=== PATIENT | female | born 1990 | race Hispanic/Latino ===

== ENCOUNTER 2017-07-31 19:58 | Emergency (ER) | payer BC ==
[2017-07-31] MEDS ORDERED: SODIUM CHLORIDE 0.9% 1000ML 1,000 ML IV ONE (20:14)
[2017-07-31 20:33] LABS: BASOPHILS % (AUTO) 0.6 % (0.0-5.0); EOSINOPHILS % (AUTO) 2.2 % (0.0-8.0); HEMATOCRIT 36.9 % (36-48); LYMPHOCYTES % (AUTO) 39.6 % (21.0-51.0); MEAN CORPUSCULAR HEMOGLOBIN 32.5 pg (27.0-33.0); MEAN CORPUSCULAR HGB CONC 35.3 g/dL (32.0-36.0); MEAN CORPUSCULAR VOLUME 92.2 fL (79-99); MONOCYTES % (AUTO) 7.9 % (3.0-13.0); NEUTROPHILS % (AUTO) 49.7 % (40.0-77.0); PLATELET COUNT (AUTO) 364 K/uL (130-400); RED CELL DISTRIBUTION WIDTH 13.4 % (11.0-15.5); WHITE BLOOD COUNT (AUTO) 10.4 K/uL (4.8-10.8)
[2017-07-31 20:38] LABS: APPEARANCE,URINE Clear (CLEAR); BILIRUBIN,URINE Negative (NEGATIVE); COLOR,URINE Yellow (YELLOW); GLUCOSE, URINE (UA) Negative (NEGATIVE); KETONES,URINE Negative (NEGATIVE); LEUKOCYTE ESTERASE ,URINE Trace (NEGATIVE); NITRATE,URINE Negative (NEGATIVE); OCCULT BLOOD,URINE Negative (NEGATIVE); PH,URINE 6.5 (5.0-8.0); PROTEIN,URINE Negative (NEGATIVE)
[2017-07-31 20:46] LABS: BACTERIA,URINE Rare /HPF (None Seen); RBC,URINE None Seen /HPF (0-1); WBC,URINE 0-1 /HPF (0-1)
[2017-07-31 20:47] LABS: CREATININE 0.7 mg/dL (0.5-1.5); POTASSIUM 3.9 mmol/L (3.5-5.1)
[2017-07-31 20:47] LABS: MUCUS,URINE Moderate LPF (None Seen)
[2017-07-31 20:57] LABS: ALBUMIN 3.5 g/dL (3.5-5.0); BILIRUBIN,TOTAL 0.2 mg/dL (0.2-1.0); TOTAL PROTEIN, SERUM 7.4 g/dL (6.0-8.3)
[2017-07-31] MEDS ORDERED: KETOROLAC TROMETHAMINE 30MG/ML ONE (21:11)
== END 2017-07-31 21:37 | disposition home or self-care (01) ==
LOC: EDH 19:58
DX: R10.2 Pelvic and perineal pain (principal)
CPT/HCPCS: 36415; 76856; 80053; 81001; 84703; 85025; 96374; 99285; J1885; J7030

== ENCOUNTER 2019-03-20 20:23 | Observation (INO) | payer BC, OTHER ==
[~2019-03-20] VITALS: Ht 154.9 cm; Wt 77.1 kg
[2019-03-20 21:09] LABS: APPEARANCE,URINE CLOUDY (CLEAR); BILIRUBIN,URINE NEGATIVE (NEGATIVE); COLOR,URINE YELLOW (YELLOW); GLUCOSE, URINE (UA) 100 mg/dL (NEGATIVE); KETONES,URINE NEGATIVE (NEGATIVE); LEUKOCYTE ESTERASE ,URINE TRACE (NEGATIVE); NITRATE,URINE NEGATIVE (NEGATIVE); OCCULT BLOOD,URINE NEGATIVE (NEGATIVE); PROTEIN,URINE TRACE mg/dL (NEGATIVE); UROBILINOGEN,URINE 0.2 mg/dL (0.2-1.0)
[2019-03-20 21:24] LABS: AMPHET/METH SCREEN,URINE NEGATIVE (NEGATIVE); BARBITURATE SCREEN, URINE NEGATIVE (NEGATIVE); BENZODIAZEPINES SCREEN,URINE NEGATIVE (NEGATIVE); CANNABINOID SCREEN,URINE NEGATIVE (NEGATIVE); COCAINE SCREEN,URINE NEGATIVE (NEGATIVE); OPIATE SCREEN,URINE NEGATIVE (NEGATIVE); PHENCYCLIDINE SCREEN,URINE NEGATIVE (NEGATIVE)
[2019-03-20 21:35] LABS: BACTERIA,URINE Many /HPF (None Seen); MUCUS,URINE Moderate LPF (None Seen); SQUAMOUS EPITHELIAL CELL,UR Moderate /HPF (0-2)
== END 2019-03-20 22:57 | disposition home or self-care (01) ==
LOC: EDH 20:23 → LDH 20:24
PROVIDERS: ADMIT Obstetrics & Gynecology; ATTEND Obstetrics & Gynecology
DX: O62.9 Abnormality of forces of labor, unspecified (principal); Z3A.30 30 weeks gestation of pregnancy
CPT/HCPCS: 59025; 76805; 76819; 80305; 81001; 99284; G0378 ×3

== ENCOUNTER 2019-04-18 10:54 | Observation (INO) | payer OTHER | END 2019-04-18 12:22 | disposition home or self-care (01) | LOC: LDH 10:54 | PROVIDERS: ADMIT Obstetrics & Gynecology; ATTEND Obstetrics & Gynecology | DX: O09.293 Supervision of pregnancy with other poor reproductive or obstetric history, third trimester (principal); Z3A.33 33 weeks gestation of pregnancy | CPT/HCPCS: 59025; 76819; G0378 ==

== ENCOUNTER 2019-05-04 02:02 | Observation (INO) | payer OTHER ==
[~2019-05-04] VITALS: Ht 152.4 cm; Wt 81.2 kg
[2019-05-04 02:43] LABS: APPEARANCE,URINE Cloudy (CLEAR); BILIRUBIN,URINE Negative (NEGATIVE); COLOR,URINE Yellow (YELLOW); GLUCOSE, URINE (UA) Negative (NEGATIVE); KETONES,URINE Negative (NEGATIVE); LEUKOCYTE ESTERASE ,URINE Moderate (NEGATIVE); NITRATE,URINE Negative (NEGATIVE); OCCULT BLOOD,URINE Negative (NEGATIVE); PH,URINE 6.5 (5.0-8.0); PROTEIN,URINE Negative (NEGATIVE)
[2019-05-04 02:53] LABS: BACTERIA,URINE Moderate /HPF (None Seen); RBC,URINE 0-1 /HPF (0-1)
[2019-05-04] MEDS ORDERED: TERBUTALINE SULFATE VIAL 1MG/ML SQ PRN (03:30)
[2019-05-04] MEDS ORDERED: LACTATED RINGERS 1000ML IV ONE (03:30)
== END 2019-05-04 07:50 | disposition home or self-care (01) ==
LOC: EDH 02:02 → INTOOBSV 02:03 → LDH 02:03
PROVIDERS: ADMIT Obstetrics & Gynecology; ATTEND Obstetrics & Gynecology
DX: O62.9 Abnormality of forces of labor, unspecified (principal); Z3A.35 35 weeks gestation of pregnancy
CPT/HCPCS: 81001; 96372; 99284; G0378 ×6; J3105; 96360; 96361

== ENCOUNTER 2019-05-17 07:28 | Inpatient (IN) | payer OTHER ==
[~2019-05-17] VITALS: Ht 152.4 cm; Wt 81.6 kg
[2019-05-17] MEDS ORDERED: EPHEDRINE SULFATE 50 MG/ML AMPULE IVP PRN (14:15)
[2019-05-17] MEDS ORDERED: NALOXONE HCL 0.4 MG/1 ML ML IV PRN (14:15)
[2019-05-17] MEDS ORDERED: LACTATED RINGERS 500 ML 500 ML IV PRN (14:15)
[2019-05-17 14:33] LABS: HEMATOCRIT 33.8 % (36-48); MEAN CORPUSCULAR HEMOGLOBIN 28.7 pg (27.0-33.0); MEAN CORPUSCULAR VOLUME 89.9 fL (79-99); PLATELET COUNT (AUTO) 340 K/uL (130-400); RED BLOOD CELL COUNT(AUTO) 3.76 MIL/uL (4.00-5.50); RED CELL DISTRIBUTION WIDTH 13.2 % (11.0-15.5); WHITE BLOOD COUNT (AUTO) 9.2 K/uL (4.8-10.8)
[2019-05-17 14:35] LABS: APPEARANCE,URINE Cloudy (CLEAR); BILIRUBIN,URINE Negative (NEGATIVE); COLOR,URINE Yellow (YELLOW); GLUCOSE, URINE (UA) Negative (NEGATIVE); KETONES,URINE Negative (NEGATIVE); LEUKOCYTE ESTERASE ,URINE Small (NEGATIVE); NITRATE,URINE Negative (NEGATIVE); OCCULT BLOOD,URINE Negative (NEGATIVE); PROTEIN,URINE Negative (NEGATIVE); UROBILINOGEN,URINE 0.2 mg/dL (0.2-1.0)
[2019-05-17] MEDS ORDERED: OXYTOCIN-LR 20 UNITS/1000 ML 1,000 ML IV SCH (15:00)
[2019-05-17 15:34] LABS: BACTERIA,URINE Moderate /HPF (None Seen); RBC,URINE 0-1 /HPF (0-1); SQUAMOUS EPITHELIAL CELL,UR Many /HPF (0-2)
[2019-05-17] MEDS ORDERED: DINOPROSTONE 10 MG VAGINAL SUPP VG SCH (16:00)
[2019-05-17] MEDS ORDERED: MEPERIDINE-PF 25 MG/ML SYG ONE (20:06)
[2019-05-17] MEDS ORDERED: PROMETHAZINE HCL 25 MG/ML 1ML AMPULE IM PRN (20:15)
[2019-05-17] MEDS ORDERED: MEPERIDINE-PF 50 MG/ML SYG IVP PRN (20:15)
[2019-05-17 20:47] VITALS: BP 112/73
[2019-05-17] MEDS: LACTATED RINGERS 1000ML 1,000 ML IV PRN (22:57)
[2019-05-18] MEDS: LACTATED RINGERS 1000ML 1,000 ML IV PRN ×2 (04:44→07:03)
[2019-05-18] MEDS ORDERED: FENTANYL CITRATE PF 50 MCG/1 ML 2ML VIAL ONE ×2 (04:48→08:22)
[2019-05-18] MEDS ORDERED: CEFAZOLIN SODIUM 1 GM VIAL ONE (07:56)
[2019-05-18] MEDS ORDERED: CALDOLOR 800MG+NS 250ML 250 ML IV ONE (07:56)
[2019-05-18] MEDS ORDERED: CALDOLOR 800MG+NS 250ML 250 ML IV PRN (08:00)
[2019-05-18] MEDS ORDERED: LACTATED RINGERS 1000ML 1,000 ML IV SCH (08:00)
[2019-05-18] MEDS ORDERED: CEFAZOLIN SODIUM 1 GM VIAL IVP PRN (08:00)
[2019-05-18 08:12] LABS: HEPATITIS Bs ANTIGEN SCREEN P Negative (Negative)
[2019-05-18] MEDS ORDERED: CEFAZOLIN SODIUM 1 GM VIAL IVP ONE (08:25)
[2019-05-18] MEDS ORDERED: OXYTOCIN 10 UNIT/1ML 10ML VIAL ONE (08:40)
[2019-05-18] MEDS ORDERED: OXYTOCIN 10 USP UNITS/ML ONE (08:41)
[2019-05-18] MEDS ORDERED: DURAMORPH PF1 MG/ML 10ML AMP IV ONE (08:44)
[2019-05-18] MEDS ORDERED: DEXTROSE 5 %-0.45 % NACL 1,000 ML IV PRN (09:30)
[2019-05-18] MEDS ORDERED: SODIUM CHLORIDE 0.9% 10 ML VIAL IVP PRN (09:30)
[2019-05-18] MEDS ORDERED: MEPERIDINE-PF 75 MG/ML SYG IM PRN (09:30)
[2019-05-18] MEDS ORDERED: PROMETHAZINE HCL 25 MG/ML 1ML AMPULE IM PRN (09:30)
[2019-05-18] MEDS ORDERED: OXYTOCIN-LR 20 UNITS/1000 ML 1,000 ML IV PRN (09:30)
[2019-05-18 09:58] LABS: HEMATOCRIT 26.3 % (36-48)
[2019-05-18] MEDS ORDERED: MEPERIDINE-PF 100 MG/ML SYG ONE (12:02)
[2019-05-18 13:38] VITALS: BP 119/66
[2019-05-18 16:06] VITALS: BP 123/75
[2019-05-18 17:04] LABS: HEMATOCRIT 24.2 % (36-48)
[2019-05-18] MEDS: CALDOLOR 800MG+NS 250ML 250 ML IV SCH (18:05)
[2019-05-18] MEDS ORDERED: PNV1TABL17 PO (18:42)
[2019-05-18] MEDS ORDERED: ASPI-555 PO (18:42)
[2019-05-18] MEDS ORDERED: FAMO-135 PO (18:42)
[2019-05-18 19:57] VITALS: BP 117/62
[2019-05-18] MEDS ORDERED: ROPIVACAINE 0.2% 100ML VIAL 100 ML EP SCH (20:45)
[2019-05-18] MEDS ORDERED: EPHEDRINE SULFATE 50 MG/ML AMPULE IVP PRN (20:45)
[2019-05-18] MEDS ORDERED: NALOXONE HCL 0.4 MG/1 ML ML IVP PRN ×3 (20:45)
[2019-05-18] MEDS ORDERED: DiphenhydrAMINE HCL 50 MG/ML VIAL IVP PRN (20:45)
[2019-05-18] MEDS ORDERED: ONDANSETRON HCL 4 MG/2 ML VIAL IVP PRN (20:45)
[2019-05-18 22:59] VITALS: BP 109/63
[2019-05-19] MEDS: CALDOLOR 800MG+NS 250ML 250 ML IV SCH (01:46)
[2019-05-19] MEDS: LACTATED RINGERS 1000ML 1,000 ML IV PRN (01:54)
--- NOTE | 2019-05-19 02:15 | NUR ---
EPIDURAL CATHETER DISLODGED FROM PT BACK. BLUE TIP INTACT. REMOVED TAPE. EXPLAINED TO PT AND MOM. REASSURED PT SHE HAS ORDERS FOR PO MEDS.
[2019-05-19 03:37] VITALS: BP 117/49
--- NOTE | 2019-05-19 04:00 | NUR ---
PT. NOTIFIED THAT PO MED ORDERS OF TYLENOL #[address] SIN SINCE PT SAID SHE DID NOT WANT DEMEROL IF SHE HAS ANY PAIN. DENYING PAIN AT THIS TIME. INST TO CALL IF ANY C/O PAIN AND VERBALIZED UNDERSTANDING.
[2019-05-19] MEDS ORDERED: ACETAMINOPHEN-CODEINE 300/30MG TAB PO PRN ×2 (04:15→09:15)
[2019-05-19 07:25] LABS: HEMATOCRIT 23.2 % (36-48); MEAN CORPUSCULAR HEMOGLOBIN 29.2 pg (27.0-33.0); MEAN CORPUSCULAR HGB CONC 31.9 g/dL (32.0-36.0); MEAN CORPUSCULAR VOLUME 91.7 fL (79-99); PLATELET COUNT (AUTO) 255 K/uL (130-400); RED BLOOD CELL COUNT(AUTO) 2.53 MIL/uL (4.00-5.50); RED CELL DISTRIBUTION WIDTH 13.2 % (11.0-15.5); WHITE BLOOD COUNT (AUTO) 15.9 K/uL (4.8-10.8)
[2019-05-19 07:54] VITALS: BP 105/71
--- NOTE | 2019-05-19 08:30 | NUR ---
DRESSING REMOVED. INCISION IS DRY AND INTACT. ABDOMINAL BINDER APPLIED. JACQUES CATHETER REMOVED WITH TIP INTACT.
[2019-05-19] MEDS ORDERED: ACETAMINOPHEN EXTRA STRENGTH 500 MG TABLET PO PRN (09:15)
[2019-05-19] MEDS ORDERED: HYDROCODONE/ACETAMINOPHEN 5/325 MG TAB PO PRN (09:15)
[2019-05-19] MEDS ORDERED: BISACODYL 10 MG SUPP.RECT RC PRN (09:15)
[2019-05-19] MEDS ORDERED: DIPH,PERTUSS(ACELL),TET VAC/PF 0.5 ML VIAL IM SCH (09:15)
--- NOTE | 2019-05-19 09:20 | NUR ---
ROUNDED ON PATIENT. POC DISCUSSED WITH PATIENT. QUESTIONS INVITED AND ANSWERED.
[2019-05-19] MEDS: IBUPROFEN 800 MG TAB PO SCH ×2 (09:22→18:17)
[2019-05-19] MEDS: SIMETHICONE 80 MG TAB.CHEW PO PRN ×3 (09:22→20:25)
[2019-05-19 11:08] VITALS: BP 109/79
--- NOTE | 2019-05-19 11:20 | NUR ---
PULSE ASSESSED MANUALLY 110. PATIENT SITTING UP IN CHAIR AT BEDSIDE. NO REPORTS OF DIZZINESS.
[2019-05-19] MEDS ORDERED: DOCUSATE SODIUM 100 MG CAP PO SCH (12:00)
--- NOTE | 2019-05-19 13:50 | NUR ---
JAYSHREE THOMPSON RN IN ROOM WITH PATIENT FOLLOWING CONE TENDER REQUEST.
[2019-05-19 16:15] VITALS: BP 122/62
--- NOTE | 2019-05-19 18:00 | NUR ---
PATIENT AMBULATING IN HALLWAY WITH MOTHER AT SIDE. NO C/O DIZZINESS.
[2019-05-19 19:55] VITALS: BP 117/64
[2019-05-19] MEDS: DOCUSATE SODIUM 100 MG CAP PO SCH (20:26)
[2019-05-19 23:20] VITALS: BP 124/79
[2019-05-20] MEDS: IBUPROFEN 800 MG TAB PO SCH ×2 (01:30→08:50)
[2019-05-20 04:06] VITALS: BP 116/67
[2019-05-20 07:15] VITALS: BP 118/83
--- NOTE | 2019-05-20 07:40 | NUR ---
PATIENT ASSESSED AND C/O NOT HAVING BM. WARM PRUNE JUICE GIVEN. INCISION IS OPEN TO AIR WITH DERMABOND AND NO DRAINAGE, REDNESS, OR EDEMA NOTED TO SITE. 2+ EDEMA NOTED TO LOWER EXTREMITIES AND NEGATIVE EFRAIN'S SIGN. C/O MILD DISCOMFORT AND WILL MEDICATE WITH MOTRIN.
[2019-05-20] MEDS: SIMETHICONE 80 MG TAB.CHEW PO PRN (08:49)
[2019-05-20] MEDS: DOCUSATE SODIUM 100 MG CAP PO SCH (08:49)
--- NOTE | 2019-05-20 09:30 | NUR ---
PATIENT WAS MEDICATED WITH MOTRIN AND A.M. MEDS GIVEN AND VERBALIZED HAVING A BM.
--- NOTE | 2019-05-20 11:30 | NUR ---
KATIE GONZALEZ CNM ROUNDED AND DISCHARGED PT TO HOME AND DISCHARGE INSTRUCTIONS GIVEN AT THIS TIME AND SCRIPT GIVEN TO PATIENT FOR HOME FRIAS MANAGEMENT AND INSTRUCTED ON DOSAGE AND FREQUENCY.
[2019-05-20 11:43] VITALS: BP 143/96
--- NOTE | 2019-05-20 12:00 | NUR ---
PATIENT WAS TAKEN VIA WHEELCHAIR CARRYING BABY IN [place] TO FAMILY VEHICLE AND WERE DISCHARGED TO HER PARENTS.
== END 2019-05-20 12:00 | disposition home or self-care (01) | DRG 788 ==
LOC: PREOBSVTOIN 12:24 → LDH 13:43 → WSH 05-18 13:35
PROVIDERS: ADMIT Obstetrics & Gynecology; ATTEND Obstetrics & Gynecology
PROC: 10D00Z1 Extraction of Products of Conception, Low, Open Approach (ICD-10-PCS; principal; 2019-05-18 08:25)
DX: O36.8930 Maternal care for other specified fetal problems, third trimester, not applicable or unspecified (principal); Z37.0 Single live birth; Z3A.37 37 weeks gestation of pregnancy
CPT/HCPCS: 36415; 59510; 81001; 85014; 85018; 85027; 86592; 86701; 86850; 86900; 86901; 87340; 87390; A4314; A4344; G0378; J0690; J1741; J2175; J2274; J2405; J2550; J2590; J3010; J7120